=== PATIENT | male | born 1980 | race Caucasian/White ===

== ENCOUNTER 2021-08-27 22:09 | Emergency (ER) | payer OTHER ==
[~2021-08-27 22:09] MED LIST: CIPRO500 MG PO; FLOMAX0.4 MG PO; K-DUR TAB 20 M20 MEQ PO
[2021-08-28] MEDS ORDERED: CEPHALEXIN500 M1 PO (02:43)
[2021-08-28] MEDS ORDERED: NAPROSYN500 MG PO (02:43)
== END 2021-08-28 02:49 | disposition home or self-care (01) ==
LOC: ER1 22:09
DX: L02.415 Cutaneous abscess of right lower limb (principal)
CPT/HCPCS: 10060; 99283